=== PATIENT | male | born 1960 | race Caucasian/White ===

== ENCOUNTER → 2017-07-24 | Outpatient (CLI) | payer BC ==
[~2017-07-24] MED LIST: AUGMENTIN875 MG PO; CARDIZEM CD120 MG PO; COUMADIN,JANTOVE5 MG PO; DIGOXIN250 MCG PO; FISH OIL SOFTG1 EAC2 PO; IBUPROFEN800 MG PO; MECLIZINE HCL25 MG PO; NEXIUM40 MG PO; PRAVASTATIN SOD80 MG PO; SOTALOL160 MG PO; XARELTO20 MG PO; ZOCOR40 MG PO
== END | disposition home or self-care (01) ==
LOC: CDC 09:48
DX: Z01.810 Encounter for preprocedural cardiovascular examination (principal); I45.10 Unspecified right bundle-branch block; Z95.0 Presence of cardiac pacemaker
CPT/HCPCS: 93000

== ENCOUNTER 2017-08-17 09:37 | Day surgery (SDC) | payer BC ==
[~2017-08-17] VITALS: Ht 182.9 cm; Wt 109.8 kg
[~2017-08-17 09:37] MED LIST changes: +LOPRESSOR50 MG PO; +MOTRIN800 MG PO; +PACERONE100 MG PO; +PRAVACHOL80 MG PO
[2017-08-17] MEDS ORDERED: FISH OIL 1,0001 EAC7 PO (09:58)
[2017-08-17 10:00] VITALS: BP 161/82
[2017-08-17 14:26] VITALS: BP 150/72
[2017-08-17 15:09] VITALS: BP 150/70
== END 2017-08-17 15:14 | disposition home or self-care (01) ==
LOC: SDC 09:37
PROVIDERS: Urology
DX: N20.2 Calculus of kidney with calculus of ureter (principal); I10 Essential (primary) hypertension; I48.2 Chronic atrial fibrillation; E78.00 Pure hypercholesterolemia, unspecified; I45.10 Unspecified right bundle-branch block; Z95.0 Presence of cardiac pacemaker; Z79.01 Long term (current) use of anticoagulants
CPT/HCPCS: 82948; C2625; J0131; J0360; J1170; J1885; J2405; J3010